=== PATIENT | female | born 1980 | race Caucasian/White ===

== ENCOUNTER → 2021-07-29 12:20 | Outpatient (BNVA) | payer OTHER, SELFPAY | PROVIDERS: Family Provider Registered Nurse; PCP Registered Nurse; Visit Provider Nurse Practitioner Family | DX: Z20.822 Contact with and (suspected) exposure to COVID-19 (principal); B96.89 Other specified bacterial agents as the cause of diseases classified elsewhere; J01.90 Acute sinusitis, unspecified | CPT/HCPCS: 87635 ==

== ENCOUNTER → 2021-11-14 12:59 | Outpatient (BNVA) | payer OTHER, SELFPAY | PROVIDERS: Family Provider Registered Nurse; PCP Registered Nurse; Visit Provider Nurse Practitioner Family | DX: Z20.822 Contact with and (suspected) exposure to COVID-19 (principal) | CPT/HCPCS: 87635 ==

== ENCOUNTER → 2021-12-13 11:44 | Outpatient (BNVA) | payer OTHER, SELFPAY | PROVIDERS: Family Provider Registered Nurse; PCP Registered Nurse; Visit Provider Nurse Practitioner Family | DX: Z20.822 Contact with and (suspected) exposure to COVID-19 (principal) | CPT/HCPCS: 87635 ==

== ENCOUNTER → 2024-02-25 14:04 | Outpatient (BNVA) | payer OTHER, SELFPAY | PROVIDERS: Family Provider Registered Nurse; PCP Nurse Practitioner Family; Visit Provider Nurse Practitioner Family | DX: N91.2 Amenorrhea, unspecified (principal) | CPT/HCPCS: 81025 ==

== ENCOUNTER 2024-08-11 01:18 | Outpatient (CLI) | payer OTHER, MEDICAID, SELFPAY ==
[2024-08-11 01:26] VITALS: BMI 30.2
[2024-08-11 01:35] VITALS: BP 132/71; PULSE 92
[2024-08-11 01:53] VITALS: BP 124/68; PULSE 92
[2024-08-11] MEDS: hyDROXYzine 25 mg Capsule PO (03:03)
--- NOTE | 2024-08-11 03:21 | USR_ITS ---
PROCEDURE INFORMATION: Exam: US Duplex Left Lower Extremity Veins, Limited Exam date and time: 08/11/2024 3:30 AM Age: 43 years old Clinical indication: Edema, localized; Lower extremity, left; Additional info: Swelling TECHNIQUE: Imaging protocol: Real-time duplex ultrasound of the left extremity with 2-D kraus scale, color Doppler flow and spectral waveform analysis including responses to compression and other maneuvers (when performed) with image documentation. Limited exam focused on the left lower extremity veins. COMPARISON: [place] [id number] 08/05/2024 8:20 AM FINDINGS: Left deep veins: Unremarkable. The common femoral, femoral, proximal profunda femoral and popliteal veins are patent without thrombus. Normal Doppler waveforms. Normal compressibility and/or augmentation response. Superficial veins: Greater saphenous vein at the saphenofemoral junction is patent without thrombus. Soft tissues: Unremarkable. US/[place] [id number] IMPRESSION: No evidence of deep vein thrombosis.
--- NOTE | 2024-08-11 03:49 | PC.NURSE ---
Andrew dental equipment technician reported to this RN that US doppler of patient's left leg was negative.
== END 2024-08-11 03:45 | disposition home or self-care (01) ==
LOC: OPOB 01:22 → OBGYN 01:23
PROVIDERS: PCP Nurse Practitioner Family; Visit Provider Family Medicine
DX: O26.899 Other specified pregnancy related conditions, unspecified trimester (principal); Z3A.00 Weeks of gestation of pregnancy not specified; R60.0 Localized edema
CPT/HCPCS: 59025; 93971; 99211

== ENCOUNTER 2024-08-11 19:04 | Emergency (ER) | payer OTHER, MEDICAID, SELFPAY ==
[2024-08-11 19:10] VITALS: BP 127/75; PULSE 103; TEMP 36.7; O2SAT 96; BMI 29.7
--- NOTE | 2024-08-11 19:32 | ECG_ITS ---
[facility] Test Date: 2024-08-11 Pat Name: Tressa Jefferson Department: Room: Gender: Female Shuttle Fixer: : 1980 Requested By: Erlinda Calderon Order Number: [id number] Preston MD: John Lazcano M.D. Measurements Intervals [place] Rate: 96 P: 54 VT: 100 QRS: 51 QRSD: 101 T: 47 QT: 361 QTc: 457 Interpretive Statements SINUS RHYTHM WITH SHORT VT INTERVAL POSSIBLE LEFT ATRIAL ENLARGEMENT [-0.1mV P-WAVE IN V1/V2] MINIMAL ST DEPRESSION [0.025+ mV ST DEPRESSION] No previous ECG available for comparison Electronically Signed On 08-12-2024 16:26:15 CDT by John Lazcano M.D. [id number]
--- NOTE | 2024-08-11 19:35 | W.ED.ANXIETY ---
HPI - Anxiety General: Chief Complaint: Anxiety Stated Complaint: Anxiety Time Seen by Provider: 08/11/24 19:09 Source: patient Mode of arrival: ambulatory Limitations: no limitations History of Present Illness: 43-year-old female who is currently 32 weeks states she has been having anxiety attacks for the last few months. States that she had just started citalopram today with her PCP and vomited after it. She states that she is unsure if it is from the medicine or from her she denies any pain denies any complaints. Associated symptoms: Reports vomiting; Deny chest pain, chills, fever(s) or headache(s) Related Data Home Medications Medication Instructions Recorded Confirmed doxylamine succinate 25 mg tablet 25 mg PO Q6H PRN Sleep 03/24/24 08/11/24 (Unisom (doxylamine)) vits 75-iron 28 mg-folic 1 pkg PO DAILY 03/24/24 08/11/24 acid 800 mcg-omega3 440 mg oral pack (One Daily ) famotidine 20 mg tablet 1 mg PO PRN 06/26/24 08/11/24 ferrous sulfate 325 mg (65 mg 325 mg PO DAILY 06/26/24 08/11/24 iron) tablet (FeroSul) enoxaparin 60 mg/0.6 mL 60 mg SUBCUT BID 08/11/24 08/11/24 subcutaneous syringe (Lovenox) Previous Rx's Medication Instructions Recorded ondansetron 4 mg disintegrating 4 mg PO Q6H PRN nausea and 08/11/24 tablet vomiting #14 tabs Allergies Allergy/AdvReac Type Severity Reaction Status Date / Time No Known Allergies Allergy Verified 08/11/24 01:50 Review of Systems Const: Denies: fever(s), chills, body aches or change in appetite ENMT: Denies: throat pain or dental pain Card: Denies: chest pain Resp: Denies: dyspnea GI: Reports: vomiting; Denies: abdominal pain or diarrhea Musc: Denies: neck pain or back pain Skin/Breast: Denies: rash Neuro: Denies: headache(s) Psych: Reports: anxiety PFSH ED PFSH: Medical History Pruritus of Acute bacterial sinusitis Migraine headache Headache Viral wart on finger Wart of hand Exposure to COVID-19 virus Social History Smoking and tobacco/nicotine status: never used tobacco/nicotine Physical Exam Const: COMMON NORMALS: no acute distress, patient oriented x3 and healthy appearing HENMT: COMMON NORMALS: normocephalic and atraumatic HEAD & SCALP: normocephalic and atraumatic Eye: COMMON NORMALS: conjunctivae normal CONJUNCTIVA: Yes conjunctivae normal Neck/C-Spine: COMMON NORMALS: full ROM and supple Chest: COMMONS NORMALS: normal inspection of the chest Resp: COMMON NORMALS: normal respiratory effort Cardio: COMMON NORMALS: regular rate, regular rhythm and No murmurs present (Cardio) RATE: regular rate RHYTHM: regular rhythm Extremity: COMMON NORMALS: normal to inspection and full ROM Neuro: COMMON NORMALS: patient oriented x3, moves all extremities and no focal motor deficits Psych: COMMON NORMALS: mental status grossly normal, Normal thought process present and cooperative THOUGHT PROCESS: Normal thought process present Skin: COMMON NORMALS: no rashes or lesions noted and no wounds GENERAL SKIN EXAM: no rashes or lesions noted Course Vital Signs: Vital signs: Vital Signs Temperature 98.1 F 08/11/24 19:10 Pulse Rate 103 H 08/11/24 19:10 Blood Pressure 127/75 08/11/24 19:10 Pulse Oximetry 96 08/11/24 19:10 Oxygen Delivery Me thod Room Air 08/11/24 19:10 MDM - Anxiety Medical Decision Making Patient presents here with anxiety she is well-appearing here she is not suicidal or homicidal she is continue to take her citalopram we will write her Zofran she is to follow-up with PCP and return if worsening. Medical Records I reviewed the patient's medical records. No radiology studies performed this visit Discharge Plan Discharge Patient Disposition: Home Clinical Impression: Acute anxiety, , Vomiting Condition: Stable Prescriptions: New ondansetron 4 mg tablet,disintegrating 4 mg PO Q6H PRN (Reason: nausea and vomiting) Qty: 14 0RF No Action Unisom (doxylamine) 25 mg tablet 25 mg PO Q6H PRN (Reason: Sleep) One Daily 28-800-440 mg-mcg-mg combo pack 1 pkg PO DAILY ferrous sulfate [FeroSul] 325 mg (65 mg iron) tablet 325 mg PO DAILY famotidine 20 mg tablet 1 mg PO PRN Lovenox 60 mg/0.6 mL Syringe 60 mg SUBCUT BID Discharge Orders: Discharge ED (Routine); Ordered 08/11/24 Ordered By: Erlinda Calderon Referrals: Enzo Pena MD [Primary Care Provider] - 4-7 days Discharge Diet: Advance as tolerated Discharge Activity: Resume usual activity Patient Instructions: Acute Nausea and Vomiting (ED), Anxiety (ED) Coding Level of Care Code ED Sheet Roller Operator for Jese Elliott
[2024-08-11] MEDS: ondansetron 2 mg/ML SDV 2 mL 4 MG IM (19:50)
[2024-08-11 19:59] VITALS: BP 133/65; PULSE 104; O2SAT 97
== END 2024-08-11 20:04 | disposition home or self-care (01) ==
PROVIDERS: Emergency Provider Emergency Medicine; PCP Family Medicine
DX: O99.343 Other mental disorders complicating pregnancy, third trimester (principal); F41.9 Anxiety disorder, unspecified; R11.2 Nausea with vomiting, unspecified; Z3A.32 32 weeks gestation of pregnancy
CPT/HCPCS: 93005; 96372; 99284; J2405

== ENCOUNTER 2024-08-12 17:15 | Outpatient (CLI) | payer OTHER, MEDICAID, SELFPAY ==
[2024-08-12] VITALS (10 sets, daily range): BP systolic 120–134; BP diastolic 62–85; PULSE 90–110; RESP 15; TEMP 36.4; BMI 29.6
[2024-08-12] MEDS: lactated ringers 1,000 ML 999 ML IV (18:25)
[2024-08-12] MEDS: promethazine 25 mg/mL SDV 1 mL IM (18:25)
[2024-08-12 19:06] LABS: Bilirubin Urine Negative (Negative); Blood Urine Negative (Negative); Glucose Urine UA Negative (Normal); Ketones Urine 3+ (Negative); Leukocyte Esterase Urine Trace (Negative); Nitrate Urine Negative (Negative); Protein Urine Trace (Negative); Specific Gravity, Urine 1.021 (1.005-1.030); Urine Appearance Clear (CLEAR); pH Urine 5.5 (5-7)
[2024-08-12 19:29] LABS: Urine Color Orange (Yellow)
[2024-08-12 19:30] LABS: UA Manual Slide Review YES; UA Slide Review UA Slide Review Perf
[2024-08-12 19:32] LABS: Add Urine Culture? No; Add Urine Microscopic? YES; Bacteria Urine 1+ /hpf; RBC Urine 0-4 /hpf (0-2); Transitional Epi Cells Urine 0-4 /hpf; WBC Urine 0-4 /hpf (0-5)
[2024-08-12] MEDS: acetaminophen 500 mg Tablet 1000 MG PO (20:06)
[2024-08-12 20:30] LABS: Actim Prom Negative
== END 2024-08-12 21:01 | disposition home or self-care (01) ==
LOC: OPOB 17:25 → OBGYN 17:26
PROVIDERS: PCP Family Medicine; Visit Provider Family Medicine
DX: O21.9 Vomiting of pregnancy, unspecified (principal); Z3A.00 Weeks of gestation of pregnancy not specified; R10.9 Unspecified abdominal pain
CPT/HCPCS: 59025; 81001; 83986; 84112; 96372; 99211; J2550; J7120

== ENCOUNTER 2024-09-03 00:06 | Outpatient (CLI) | payer OTHER, MEDICAID, SELFPAY ==
[2024-09-03 00:14] VITALS: RESP 16; BMI 30.1
[2024-09-03 00:19] VITALS: BP 128/72; PULSE 90
[2024-09-03 00:34] VITALS: BP 129/80; PULSE 89
[2024-09-03 00:49] VITALS: BP 127/75; PULSE 92
[2024-09-03 01:00] LABS: Bilirubin Urine Negative (Negative); Blood Urine Negative (Negative); Glucose Urine UA Negative (Normal); Ketones Urine Trace (Negative); Leukocyte Esterase Urine Negative (Negative); Nitrate Urine Negative (Negative); Protein Urine Negative (Negative); Specific Gravity, Urine 1.014 (1.005-1.030); Urine Appearance Clear (CLEAR); Urine Color Yellow (Yellow); pH Urine 5.5 (5-7)
[2024-09-03 01:04] VITALS: BP 129/77; PULSE 93
[2024-09-03 01:05] LABS: Bacteria Urine Trace /hpf; RBC Urine 0-2 /hpf (0-2); Squamous Epithelial Cell Urine 0-5 /hpf (0-5); WBC Urine 0-5 /hpf (0-5)
[2024-09-03 01:43] VITALS: BP 129/77; PULSE 93; RESP 16
== END 2024-09-03 01:35 | disposition home or self-care (01) ==
LOC: OBGYN 01:25 → OPOB 06:53 → OBGYN 06:53
PROVIDERS: PCP Family Medicine; Visit Provider Family Medicine
DX: O26.899 Other specified pregnancy related conditions, unspecified trimester (principal); Z3A.00 Weeks of gestation of pregnancy not specified; R11.0 Nausea
CPT/HCPCS: 81001; G0378; G0379

== ENCOUNTER 2024-09-04 18:10 | Outpatient (CLI) | payer OTHER, MEDICAID, SELFPAY ==
[2024-09-04] VITALS (20 sets, daily range): BP systolic 116–134; BP diastolic 55–77; PULSE 79–127; RESP 17; BMI 28.8
[2024-09-04] MEDS: lactated ringers 1,000 ML 999 ML IV (21:05)
[2024-09-04] MEDS: NIFEdipine 10 mg Capsule PO ×2 (22:25→23:29)
[2024-09-05 00:03] VITALS: BP 119/58; PULSE 125
[2024-09-05 00:18] VITALS: BP 127/58; PULSE 114
--- NOTE | 2024-09-05 00:30 | P.DS_ITS ---
Discharge Providers LIQUEFIED PETROLEUM GASFITTER Date of Admission: 09/04/2024 Date of Discharge: 09/05/24 Attending Provider at Discharge: Andrew Deutsch MD Primary Care Provider: Enzo Pena MD Reason for Visit Reason for Visit: pressure,contrations Hospital Course Hospital Course This is a 43-year-old -1-1-4 that presents at 35 weeks 5 days with contractions and vaginal pressure. Patient was initially dalia 36 minutes with quite a bit of uterine irritability. Urine was dark and consistent with dehydration. Patient was given oral fluids with some improvement in irritability but still was dalia anywhere from every 3 to 6 minutes. Patient was given a liter bolus of IV fluids but contractions continued at this time. Patient received 2 doses of Procardia and the contractions subsided. The patient was feeling significant vaginal pressure. A sterile speculum exam was performed and demonstrated a cervix that may have been dilated to 1 cm but was extremely thick with no concerns of immediate delivery. Patient had active herpes lesions on her mons pubis and is actively taking valacyclovir. The fetus is trisomy 21 and potentially has heart defects and they are to go to [place] next week for level 2 ultrasound and evaluation by MFM. She is the patient is contractions did subside after 2 doses of Procardia and there was no significant dilation the patient was deemed safe for discharge. Patient has follow-up next week with Dr. Pena. Physical Exam Const: COMMON NORMALS: no acute distress Neck/C-Spine: COMMON NORMALS: no JVD Resp: COMMON NORMALS: normal respiratory effort and No retractions Cardio: COMMON NORMALS: no JVD, regular rate and regular rhythm RATE: regular rate RHYTHM: regular rhythm GI: OTHER: Gravid uterus : COMMON NORMALS: Yes normal appearance of the vagina and Yes normal appearance of the cervix SPECULUM EXAM - CERVIX: Yes Cervical os open OB/EXTERNAL & SPECULUM: Cervical os open OTHER: Small ulceration noted on mons pubis Extremity: COMMON NORMALS: no clubbing, cyanosis or edema Psych: COMMON NORMALS: mental status grossly normal Discharge Data Vitals Last Vital Signs Pulse 114 H 09/05/24 00:18 Resp 17 09/04/24 18:10 BP 127/58 09/05/24 00:18 O2 Del Method Room Air 09/04/24 18:10 Results Labs OB ([facility]): Obstetrics US 08/05/24 HCG, Qual Positive (Negative) H 02/25/24 Discharge Plan Discharge Patient Disposition: Home Prescriptions: No Action One Daily 28-800-440 mg-mcg-mg combo pack 1 pkg PO DAILY ferrous sulfate [FeroSul] 325 mg (65 mg iron) tablet 325 mg PO DAILY famotidine 20 mg tablet 1 mg PO PRN promethazine 25 mg tablet 25 mg PO PER PKG DIR ondansetron 4 mg tablet,disintegrating 4 mg PO Q4-5H PRN (Reason: Nausea And Vomiting) Discharge Orders: Discharge Order (Routine); Ordered 09/05/24 Ordered By: Andrew Deutsch Diet: Usual diet Activity: Limit activity as instructed Discharge Attestations LIQUEFIED PETROLEUM GASFITTER Time Spent in Discharge Care*: less than 30 min Coding Level of Care Code Acute Code for Chg Earl
== END 2024-09-05 00:59 | disposition home or self-care (01) ==
LOC: OPOB 18:11 → OBGYN 18:13
PROVIDERS: PCP Family Medicine; Visit Provider Family Medicine
DX: O26.893 Other specified pregnancy related conditions, third trimester (principal); Z3A.35 35 weeks gestation of pregnancy; R10.9 Unspecified abdominal pain; R10.2 Pelvic and perineal pain
CPT/HCPCS: 36415; 59025; 99211; J7120

== ENCOUNTER 2024-09-14 02:43 | Outpatient (CLI) | payer OTHER, MEDICAID, SELFPAY ==
[2024-09-14] VITALS (21 sets, daily range): BP systolic 105–130; BP diastolic 58–78; PULSE 45–78; RESP 16–18; TEMP 36.8; O2SAT 99; BMI 29.8
[2024-09-14] MEDS: lactated ringers 1,000 ML 999 ML IV (03:30)
--- NOTE | 2024-09-14 08:33 | USR_ITS ---
PROCEDURE INFORMATION: Exam: US Biophysical Profile Without Non-Stress Test Exam date and time: 09/14/2024 9:01 AM Age: 43 years old Clinical indication: Screening exam; Routine US screening of fetus; Third trimester (>=28 weeks 0 days); ; Additional info: Category 2 strip TECHNIQUE: Imaging protocol: US biophysical profile without non-stress testing. COMPARISON: [place] [id number] 08/05/2024 8:20 AM FINDINGS: heart rate: 169 bpm presentation and position: presentation is vertex. Placenta: Placenta is posterior. BIOPHYSICAL PROFILE: breathing (BPP): 2 out of 2. gross body movement (BPP): 2 out of 2. tone (BPP): 2 out of 2. Amniotic fluid (BPP): Not well seen. A single ALTAF measurement was obtained at 3.2 cm. Visually the ALTAF appears reduced on the images submitted. MATERNAL ANATOMY: Cervix: Cervix not visualized. US/US OB BPP wo NST [id number] IMPRESSION: Biophysical profile score cannot be calculated as the amniotic fluid was not adequately visualized. Visually the ALTAF appears reduced on the images submitted. breathing movements were not visualized.
--- NOTE | 2024-09-15 09:30 | PM.OBTRLD ---
OB L&D Triage Visit Information: Date of evaluation: 09/15/24 Comments/Additional reason(s) for visit: The patient arrived at the hospital complaining of contractions. She was evaluated and found to have minimal cervical change. She was also noted to have good moderate variability. But she was also having some decelerations that appeared to be late decelerations intermittently. A biophysical profile was performed, and appeared to be a 6 out of 8 with the baby not showing signs of breathing despite being very active. The mother was scheduled for an induction today at [facility]. The baby demonstrated a reactive strip prior to being discharged. Because of the known trisomy 21 with possible cardiac problems, the patient be better served by her labor being managed in [facility]. Earlier this week I discussed with Dr. Huang and we had determined that it be best for her to have it done there. [facility] has been on divert this morning but should have a bed available for her to be induced later. Since the baby has a reactive strip, the baby is active, and the the baby will be better served by delivering in [facility] because of their access to NICU and neonatology, we will at the mother go home and go to [facility] as soon as they have a bed available. We will be in touch with them within 6 hours if she does not have a bed available there at that time. Evaluation: monitor accelerations: Present 15x15 station: -4 Vital signs: Vital Signs - 24 hr 09/14/24 10:20 Temperature 98.2 F Pulse Rate 78 Respiratory Rate 16 Blood Pressure 114/78 Pulse Oximetry 99 Final Diagnosis Final Diagnosis (1) 37 weeks gestation of : Status: Acute Code(s): Z3A.37 - 37 weeks gestation of (2) Trisomy 21 of fetus in current cronin : Status: Acute Code(s): O35.13X0 - Maternal care for (suspected) chromosomal abnormality in fetus, Trisomy 21, not applicable or unspecified (3) History of herpes genitalis: Status: Acute Code(s): Z86.19 - Personal history of other infectious and parasitic diseases Coding Level of Care Code Acute Code for Chg Fwd Diagnoses 37 weeks gestation of Z3A.37 Trisomy 21 of fetus in current cronin O35.13X0 History of herpes genitalis Z86.19
== END 2024-09-14 10:39 | disposition home or self-care (01) ==
LOC: OPOB 02:43 → OBGYN 02:44
PROVIDERS: PCP Family Medicine; Visit Provider Family Medicine
DX: O26.899 Other specified pregnancy related conditions, unspecified trimester (principal); Z3A.00 Weeks of gestation of pregnancy not specified; R10.9 Unspecified abdominal pain; R10.2 Pelvic and perineal pain
CPT/HCPCS: 59025; 76819; 99211; J7120

== ENCOUNTER 2024-10-16 15:00 | Emergency (ER) | payer OTHER, MEDICAID, SELFPAY ==
[2024-10-16 15:22] LABS: Basophils # 0.1 10^3/uL (0.0-0.1); Basophils % 0.8 %; Eosinophils # 0.1 10^3/uL (0.0-0.8); Eosinophils % 1.1 %; Hematocrit 38.1 % (36-47); Lymphocytes # 1.8 10^3/uL (0.8-4.8); Mean Corpuscular HGB Conc 33.3 g/dL (30-55); Mean Corpuscular Hemoglobin 30.9 pg (27-33); Mean Corpuscular Volume 92.7 fl (85-98); Mean Platelet Volume 9.2 fL (7.4-10.4); Monocytes # 0.4 10^3/uL (0.2-0.9); Monocytes % 5.9 %; Neutrophils # 3.83 10^3/uL (1.8-7.7); Neutrophils % 62.9 %; Nucleated Red Blood Cells % 0 %; Platelet Count 197 10^3/cmm (157-399); Red Blood Count 4.11 10^6/uL (3.85-5.65)
[2024-10-16 15:36] LABS: HCG, Serum Qual Negative (Negative)
[2024-10-16 15:43] LABS: Alanine Aminotransferase 9 U/L (0-33); Albumin Level 4.4 g/dL (3.5-5.2); Alkaline Phosphatase 88 U/L (35-105); Anion Gap 14.9 (5-19); Aspartate Amino Transferase 12 U/L (0-32); Blood Urea Nitrogen 12 mg/dL (6-20); Calcium 9.2 mg/dL (8.5-10.5); Carbon Dioxide 25 mmol/L (22-29); Chloride 104 mmol/L (98-107); Globulin 2.6 g/dL (1.3-4.6); Glomerular Filtration Rate 77.9 mL/min (90-130); Glucose 94 mg/dL (65-115); Lipase 31 U/L (13-60); Osmolality Calculated 290 mOsm/kg (285-295); Potassium 3.9 mmol/L (3.5-5.1); Sodium 140 mmol/L (136-145); Total Bilirubin 0.5 mg/dL (0.15-1.2)
[2024-10-16 15:51] VITALS: BP 129/78; PULSE 72; TEMP 36.8; O2SAT 96; BMI 24.8
== END 2024-10-16 17:59 | disposition left against medical advice (07) ==
PROVIDERS: Emergency Medicine; Emergency Provider Family Medicine; PCP Family Medicine
DX: Z53.21 Procedure and treatment not carried out due to patient leaving prior to being seen by health care provider (principal)
CPT/HCPCS: 36415; 80053; 83690; 84703; 85025

== ENCOUNTER → 2024-10-20 15:50 | Outpatient (BNVA) | payer OTHER, MEDICAID, SELFPAY | PROVIDERS: PCP Family Medicine; Visit Provider Nurse Practitioner Family | DX: R53.83 Other fatigue (principal); Z98.891 History of uterine scar from previous surgery | CPT/HCPCS: 80053; 83550; 84443; 85025 ==

== ENCOUNTER → 2024-10-23 14:53 | Outpatient (BNVA) | payer OTHER, MEDICAID, SELFPAY | PROVIDERS: PCP Nurse Practitioner Family; Visit Provider Nurse Practitioner Family | DX: R10.9 Unspecified abdominal pain (principal); Z98.891 History of uterine scar from previous surgery | CPT/HCPCS: 74018 ==

== ENCOUNTER → 2025-01-15 16:09 | Outpatient (BNVA) | payer OTHER, SELFPAY | PROVIDERS: PCP Nurse Practitioner Family; Visit Provider Nurse Practitioner Family | DX: R30.0 Dysuria (principal); N39.0 Urinary tract infection, site not specified | CPT/HCPCS: 81000; 81003; 87086 ==